=== PATIENT | male | born 1985 | race Caucasian/White ===

== ENCOUNTER 2019-08-29 09:23 | Emergency (ER) | payer OTHER ==
[2019-08-29 10:19] LABS: ABSOLUTE EOSINOPHILS # (AUTO) 0.2 10^3/uL (0.0-0.6); ABSOLUTE LYMPHOCYTES (AUTO) 2.4 10^3/uL (0.5-4.7); ABSOLUTE MONOCYTES (AUTO) 0.8 10^3/uL (0.1-1.4); ABSOLUTE NEUT (AUTO) 3.2 10^3/uL (1.7-8.2); BASOPHILS % (AUTO) 0.3 % (0-2); EOSINOPHILS % (AUTO) 2.7 % (0-6); HEMATOCRIT 40.7 % (37.9-51.0); HEMOGLOBIN 14.1 g/dL (13.5-17.0); LYMPHOCYTES % (AUTO) 36.1 % (13-45); MEAN CORPUSCULAR HEMOGLOBIN 31.2 pg (27.0-33.4); MEAN CORPUSCULAR HGB CONC 34.6 g/dL (32.0-36.0); MEAN CORPUSCULAR VOLUME 90 fl (80-97); MONOCYTES % (AUTO) 12.1 % (3-13); PLATELET COUNT 251 10^3/uL (150-450); RED BLOOD COUNT 4.51 10^6/uL (4.35-5.55); RED CELL DISTRIBUTION WIDTH 13.2 % (11.5-14.0); SEGMENTED NEUTROPHILS % (AUTO) 48.8 % (42-78); TOTAL CELLS COUNTED % (AUTO) 100 %; WHITE BLOOD COUNT 6.6 10^3/uL (4.0-10.5)
[2019-08-29 10:40] LABS: ALBUMIN 4.6 g/dL (3.5-5.0); ALKALINE PHOSPHATASE 42 U/L (38-126); ANION GAP 7 (5-19); ASPARTATE AMINO TRANSFERASE 24 U/L (17-59); BILIRUBIN,TOTAL 0.4 mg/dL (0.2-1.3); BLOOD UREA NITROGEN 11 mg/dL (7-20); CALCIUM 9.5 mg/dL (8.4-10.2); CARBON DIOXIDE 28 mmol/L (22-30); CHLORIDE 106 mmol/L (98-107); GLUCOSE 89 mg/dL (75-110); POTASSIUM 4.8 mmol/L (3.6-5.0); TOTAL PROTEIN 7.9 g/dL (6.3-8.2)
--- NOTE | 2019-08-29 12:12 | ER Document Report ---
Entered by MIRA BARRETT SCRIBE 08/29/19 1130 Acting as scribe for:PADMINI CARPENTER MD ED ENT - General Chief Complaint: Ear Pain Stated Complaint: RIGHT EAR PAIN, SWELLING Time Seen by Provider: 08/29/19 11:05 Mode of Arrival: Ambulatory Information source: Patient Notes: This 34-year-old male patient in custody of the [facility] presents to the emergency department today with complaints of right ear swelling. Patient states that there was no trauma to the ear but he mentions that he has noticed swelling for the last few days. Patient denies any fevers or cough. - Related Data Allergies/Adverse Reactions: No Known Allergies Allergy (Verified 08/29/19 10:42) Past Medical History - General Information source: Patient - Social History Smoking Status: Current Every Day Smoker Cigarette use (# per day): Yes - when not incarcerated, 1ppd Frequency of alcohol use: None Drug Abuse: Marijuana Occupation: currently incarcerated Lives with: Other - incarcerated Family History: Reviewed & Not Pertinent Patient has homicidal ideation: No Past Surgical History: Reports: Hx Orthopedic Surgery - Left ACL repair. Right elbow ORIF Review of Systems - Review of Systems Constitutional: denies: Fever EENT: See HPI, Ear pain - right Cardiovascular: No symptoms reported Respiratory: denies: Cough Gastrointestinal: No symptoms reported Genitourinary: No symptoms reported Male Genitourinary: No symptoms reported Musculoskeletal: No symptoms reported Skin: No symptoms reported Hematologic/Lymphatic: No symptoms reported Neurological/Psychological: No symptoms reported -: Yes All other systems reviewed and negative Physical Exam - Vital signs Vitals: Temp Pulse Resp BP Pulse Ox 98.8 F 91 14 169/82 H 100 08/29/19 09:27 08/29/19 09:27 08/29/19 09:27 08/29/19 09:27 08/29/19 09:27 - Notes Notes: Physical Exam: General: Alert, appears well. HEENT: Normocephalic. Atraumatic. PERRL. Extraocular movements intact. Oropharynx clear. Neck: Supple. Non-tender. Respiratory: No respiratory distress. Clear and equal breath sounds bilaterally. Cardiovascular: Regular rate and rhythm. Abdominal: Normal Inspection. Non-tender. No distension. Normal Bowel Sounds. Back: No gross abnormalities. Extremities: Moves all four extremities. Upper extremities: Normal inspection. Normal ROM. Lower extremities: Normal inspection. No edema. Normal ROM. Neurological: Normal cognition. AAOx4. Normal speech. Psychological: Normal affect. Normal Mood. Skin: Warm. Dry. Normal color. - HEENT Head: Normocephalic Eyes: Normal External canal: Other - The right ear shows a bulging minimally tender scaphoid fossa extending into the anti-helix region. The swelling appears to stop at the anti-tragus region. The helix itself does not appear to be involved. Course - Vital Signs Vital signs: Temp Pulse Resp BP Pulse Ox 98.8 F 91 14 169/82 H 100 08/29/19 09:27 08/29/19 09:27 08/29/19 09:27 08/29/19 09:27 08/29/19 09:27 - Laboratory Result Diagrams: 08/29/19 10:05 08/29/19 10:05 - Consults Dr. Palmer Time consulted: 12:10 Consulted provider: will come to ER Discharge - Discharge Clinical Impression: Cauliflower ear, right ear Condition: Stable Disposition: HOME, SELF-CARE Additional Instructions: You had a fluid collection between the anterior and posterior skin of your ear, commonly known as cauliflower ear. The ear nose and throat surgeon opened, drained this area and then closed it with compression bolsters. You should keep the area clean and dressed with bacitracin ointment. Have the sutures removed in 10 days. You do not need to follow-up with the ear nose and throat surgeon, unless you notice signs of wound infection or other problems. You may take Tylenol and ibuprofen for pain as needed. Take the Augmentin antibiotic twice daily as prescribed for 10 days. RETURN TO THE EMERGENCY ROOM IF ANY NEW OR WORSENING SYMPTOMS. Prescriptions: Amoxicillin/Potassium Clav [Augmentin 875-125 Tablet] 1 tab PO Q12 #20 tablet Referrals: ALTHEA PALMER MD [ACTIVE STAFF] - Follow up as needed I personally performed the services described in the documentation, reviewed and edited the documentation which was dictated to the scribe in my presence, and it accurately records my words and actions.
[2019-08-29] MEDS ORDERED: LIDOCAINE 2%/EPINEPHRINE INJ 20 ML VIAL ONE (16:51)
[2019-08-29] MEDS ORDERED: LIDOCAINE 2%/EPINEPHRINE INJ 20 ML VIAL INJ ONE (16:52)
[2019-08-29] MEDS ORDERED: AMOXICILLIN TR/POT CLAVULANATE 875-125 MG TAB PO ONE (17:46)
[2019-08-29 18:01] VITALS: BP 132/82
--- NOTE | 2019-08-30 07:26 | PDOC CONSULTATION ---
Consultation Consult Date: 08/29/19 Provider Consulted: ALTHEA DELGADILLO Consult reason:: auricular hematoma History of Present Illness History of Present Illness: Otolaryngology service was asked to evaluate a 34-year-old male with a auricular hematoma involving the right ear. Patient states that he woke up and noticed swelling of his right ear. Patient was brought to the emergency room and evaluated by the emergency room physician determined he had an auricular hematoma. The patient denies previous episodes. Otolaryngology was then consulted. Past Medical History Cardiac Medical History: Reports: None Pulmonary Medical History: Reports: None EENT Medical History: Reports: None Neurological Medical History: Reports: None Endocrine Medical History: Reports: None Renal/ Medical History: Reports: None Malignancy Medical History: Reports: None GI Medical History: Reports: None Musculoskeltal Medical History: Reports: None Skin Medical History: Reports: None Psychiatric Medical History: Reports: None Past Surgical History Past Surgical History: Reports: Orthopedic Surgery - Left ACL repair. Right elbow ORIF Social History Lives with: Other - incarcerated Smoking Status: Current Every Day Smoker Family History Family History: Reviewed & Not Pertinent Parental Family History Reviewed: No Children Family History Reviewed: No Sibling(s) Family History Reviewed.: No Medication/Allergy Home Medications: Amoxicillin/Potassium Clav [Augmentin 875-125 Tablet] 1 tab PO Q12 #20 tablet 08/29/19 Allergies/Adverse Reactions: No Known Allergies Allergy (Verified 08/29/19 10:42) Review of Systems Nose, Mouth, and Throat: ABSENT: headache(s), mouth pain, sore throat, vertigo, other Breasts: ABSENT: other Cardiovascular: ABSENT: chest pain, dyspnea on exertion, edema, orthropnea, palpitations, other Respiratory: ABSENT: as per HPI, cough, dyspnea, hemoptysis, sputum, other Gastrointestinal: ABSENT: as per HPI, abdominal pain, bloating, coffee ground emesis, constipation, diarrhea, dysphagia, heartburn, hematemesis, hematochezia, melena, nausea, vomiting, other Genitourinary: ABSENT: as per HPI, difficulty urinating, dysuria, hematuria, nocturia, other Musculoskeletal: ABSENT: as per HPI, back pain, deformity, joint swelling, muscle weakness, other Integumentary: ABSENT: as per HPI, diaphoresis, erythema, lesions, pruritus, rash, wounds, other Neurological: ABSENT: as per HPI, abnormal gait, abnormal movements, abnormal speech, confusion, convulsions, dizziness, focal weakness, frequent falls, lack of coordination, memory loss, numbness, paresthesias, restless legs, syncope, tingling, tremor(s), vertigo, weakness, other Psychiatric: ABSENT: as per HPI, anxiety, depression, hallucinations, homidical ideation, suicidal ideation, other Endocrine: ABSENT: as per HPI, cold intolerance, flushing, heat intolerance, menstrual abnormalities, polydipsia, polyphagia, polyuria, other Hematologic/Lymphatic: ABSENT: as per HPI, easy bleeding, easy bruising, lymphadenopathy, other Physical Exam Vital Signs: Temp Pulse Resp BP Pulse Ox 98.4 F 84 18 132/82 H 99 08/29/19 17:55 08/29/19 17:55 08/29/19 17:55 08/29/19 17:55 08/29/19 17:55 Intake & Output 08/29/19 08/30/19 08/31/19 06:59 06:59 06:59 Weight 92.3 kg Exam: Ears: Ballotable area is palpated over the anterior surface of the superior auricle and the conchal bowl on the right. This is consistent with an auricular hematoma. Procedure: After receiving informed consent a timeout was performed. The right auricle was infiltrated with 2% lidocaine with 100,000 epinephrine on both the anterior and posterior surfaces. Patient then prepped and draped in sterile fashion. An 18-gauge needle was used to aspirate the hematoma on the right si de. Approximately 7 mL's of serosanguineous fluid was aspirated. This decompressed the hematoma. The flaps were flat after the aspiration. Bolsters were then placed over the superior auricle and conchal bowl on both the anterior and superior surfaces. These bolsters were secured with a 2-0 silk. Patient tolerated the procedure well without complications. Eye exam: PRESENT: conjunctiva pink, EOMI, PERRLA. ABSENT: scleral icterus Mouth exam: PRESENT: moist, tongue midline Neck exam: ABSENT: carotid bruit, JVD, lymphadenopathy, thyromegaly Respiratory exam: PRESENT: clear to auscultation sharri. ABSENT: rales, rhonchi, wheezes Cardiovascular exam: PRESENT: RRR. ABSENT: diastolic murmur, rubs, systolic murmur Pulses: PRESENT: normal dorsalis pedis pul Vascular exam: PRESENT: normal capillary refill Extremities exam: PRESENT: full ROM. ABSENT: calf tenderness, clubbing, pedal edema Musculoskeletal exam: PRESENT: ambulatory, full ROM Neurological exam: PRESENT: alert, awake, oriented to person, oriented to place, oriented to time, oriented to situation, CN II-XII grossly intact. ABSENT: motor sensory deficit Psychiatric exam: PRESENT: appropriate affect, normal mood. ABSENT: homicidal ideation, suicidal ideation Skin exam: PRESENT: dry, intact, warm. ABSENT: cyanosis, rash Results Laboratory Results: 08/29/19 10:05 08/29/19 10:05 08/29/19 08/29/19 10:05 10:05 WBC 6.6 RBC 4.51 Hgb 14.1 Hct 40.7 MCV 90 MCH 31.2 MCHC 34.6 RDW 13.2 Plt Count 251 Seg Neutrophils % 48.8 Sodium 140.7 Potassium 4.8 Chloride 106 Carbon Dioxide 28 Anion Gap 7 BUN 11 Creatinine 0.94 Est GFR ( Amer) > 60 Glucose 89 Calcium 9.5 Total Bilirubin 0.4 AST 24 Alkaline Phosphatase 42 Total Protein 7.9 Albumin 4.6 Assessment & Plan - Diagnosis (1) Hematoma of right auricular region Is this a current diagnosis for this admission?: Yes Plan: 1. The diagnosis and treatment plan were discussed with the patient, the licensed loan officer and the emergency room physician. 2. Recommend the patient be discharged on a broad-spectrum antibiotic such as Augmentin 875 twice a day for 10 days. 3. Application of bacitracin ointment twice a day to the bolsters. 4. Recommend removal of bolsters in 10 days.
== END 2019-08-29 18:14 | disposition home or self-care (01) ==
LOC: ER 09:23
PROC: 09957ZZ Drainage of Right Middle Ear, Via Natural or Artificial Opening (ICD-10-PCS; principal; 2019-08-29)
DX: M95.11 Cauliflower ear, right ear (principal); H92.01 Otalgia, right ear; H93.8X1 Other specified disorders of right ear; F17.210 Nicotine dependence, cigarettes, uncomplicated; F12.10 Cannabis abuse, uncomplicated
CPT/HCPCS: 99284; 36415; 85025; 80053; 69420; J3490 ×2